=== PATIENT | female | born 1995 | race Caucasian/White ===

== ENCOUNTER 2016-06-13 15:43 | Emergency (ER) | payer OTHER ==
[~2016-06-13] VITALS: Ht 152.4 cm; Wt 77.0 kg
[2016-06-13 15:56] VITALS: Ht 152.4 cm; Wt 77.0 kg
[2016-06-13] MEDS ORDERED: METOCLOPRAMIDE 10 MG INJ IV STA (16:17)
[2016-06-13] MEDS ORDERED: DIPHENHYDRAMINE 50 MG INJ IV STA (16:17)
[2016-06-13] MEDS ORDERED: HYDROmorphONE 1 MG/ML SYG IV STA (16:17)
--- NOTE | 2016-06-13 17:28 | RADRPT ---
PROCEDURE: XR Chest. CLINICAL INDICATION: Left arm numbness, positive PPD TECHNIQUE: AP view of the chest was obtained. COMPARISON: None. FINDINGS: The cardiomediastinal silhouette is within normal limits. The lungs are clear. No pleural effusion or pneumothorax is identified. The visualized osseous structures are intact. IMPRESSION: No evidence of active cardiopulmonary disease. RPTAT: VV .Joss Brown MD, Date Time Electronically viewed and signed by .Joss Brown MD, on 06/13/2016 17:28 .O/
--- NOTE | 2016-06-13 17:39 | RADRPT ---
PROCEDURE: CT Brain without. CLINICAL INDICATION: Headache. TECHNIQUE: A CT of the brain was performed on multidetector high-resolution CT scanner utilizing a xial sections from the skull base through the vertex without contrast. The scan was reviewed in sof t tissue brain and high frequency resolution bone algorithm windows. Images were reviewed on a high -resolution PACS workstation. One or more the following does reduction techniques were utilized: Aut omated exposure control, adjustment of the mA/ or kV according to patient's size, or use of iterativ e reconstruction technique. The exam CTDI = 43.27 mGy and the DLP = 720.23 mGy-cm. COMPARISON: None available. FINDINGS: The ventricles and sulci are age-appropriate. There is no intracranial hemorrhage, mass effect or mi dline shift. No abnormal intra-axial or extra-axial fluid collections are seen. The vergara/white wallace er differentiation is preserved. No acute skull abnormality is noted. The visualized paranasal sinus es are essentially clear. IMPRESSION: 1. No acute intracranial hemorrhage, transcortical infarction or mass effect. RPTAT: EE .Vida Aparicio MD, MD Date Time Electronically viewed and signed by .Vida Aparicio MD, MD on 06/13/2016 17:39 .N/
[2016-06-13 18:36] VITALS: BP 129/79; PULSE 73; RESP 18
[2016-06-13] MEDS ORDERED: HYDR-906 PO (18:38)
[2016-06-13] MEDS ORDERED: IBUP800T25 PO (18:38)
--- NOTE | 2016-06-13 18:43 | ERD ---
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 She then states that her left upper extremity felt a little tingly but not weak. No change in speech no symptoms in the leg. She does not have a migraine history and has never had these symptoms before. No recent illness no fever or neck pain shortness of breath photophobia no phonophobia but her headache gets severely worse when she stands up or bends over. The patient had a PPD placed 5 days ago, and this is her second 1 in the past 10 days because the nurse read as positive. The patient had a chest x-ray yesterday but does not have the results. She has no TB symptoms. ROS All systems reviewed and are negative except as per history of present illness. Medications Home Meds Active Scripts Hydrocodone/Acetaminophen ([place] 5-325 Tablet) 1 Each Tablet, 1 TAB PO Q6H Y for PAIN, #20 TAB Prov:LEKKOS,APOSTOLOS A. DO 06/13/16 Ibuprofen* (Motrin*) 800 Mg Tab, 800 MG PO Q6H Y for PAIN AND OR ELEVATED TEMP, #30 TAB Prov:LEKKOS,APOSTOLOS A. DO 06/13/16 Allergies Allergies: Coded Allergies: No Known Allergy (Unverified , 06/13/16) PMhx/Soc Medical and Surgical Hx: pt denies Medical Hx, pt denies Surgical Hx Hx Alcohol Use: No Hx Substance Use: No Hx Tobacco Use: No Smoking Status: Never smoker FmHx Family History: No coronary disease Physical Exam Vitals Vital Signs Date Time Temp Pulse Resp B/P Pulse Ox O2 Delivery O2 Flow Rate FiO2 06/13/16 18:36 73 18 129/79 98 Room Air 06/13/16 15:56 98.1 87 18 130/74 98 Physical Exam Const: Well-developed, well-nourished Head: Atraumatic, normocephalic Eyes: Normal Conjunctiva, PERRLA, EOMI, normal sclera, no nystagmus ENT: Normal External Ears, Nose and Mouth, moist mucus membranes. Neck: Full range of motion. No meningismus, no lymphadenopathy. Resp: Clear to auscultation bilaterally, no wheezing, rhonchi, rales Cardio: Regular rate and rhythm, no murmurs, S1 S2 present Abd: Soft, non tender x 4, non distended. Normal bowel sounds, no guarding or rebound, no pulsitile abdominal masses or bruits Skin: No petechiae or rashes, no ecchymosis , no maculopapular rash, right forearm has a red irregular bordered site of erythema over the PPD was placed it is not raise Back: No midline or flank tenderness Ext: No cyanosis, or edema, FROM x 4, normal inspection, neurovascularly intact x 4, slight subjective tingling in her left arm Neur: Awake and alert, STR 5/5 x 4, sensation intact x 4, no focal findings, cerebellum intact Psych: Normal Mood and Affect Results 24 hrs Current Medications Medications (Trade) Dose Ordered Sig/Steve Route PRN Reason Start Time Stop Time Status Last Admin Dose Admin Metoclopramide HCl (Reglan) 10 mg ONCE STAT IV 06/13/16 16:17 06/13/16 16:19 DC 06/13/16 16:47 Hydromorphone HCl (Dilaudid) 1 mg ONCE STAT IV 06/13/16 16:17 06/13/16 16:19 DC 06/13/16 16:48 Diphenhydramine HCl (Benadryl) 25 mg ONCE STAT IV 06/13/16 16:17 06/13/16 16:19 DC 06/13/16 16:47 Procedures/MDM PROCEDURE: CT Brain without. CLINICAL INDICATION: Headache. TECHNIQUE: A CT of the brain was performed on multidetector high-resolution CT scanner utilizing axial sections from the skull base through the vertex without contrast. The scan was reviewed in soft tissue brain and high frequency resolution bone algorithm windows. Images were reviewed on a high- resolution PACS workstation. One or more the following does reduction techniques were utilized: Automated exposure control, adjustment of the mA/ or kV according to patient's size, or use of iterative reconstruction technique. The exam CTDI = 43.27 mGy and the DLP = 720.23 mGy-cm. COMPARISON: None available. FINDINGS: The ventricles and sulci are age-appropriate. There is no intracranial hemorrhage, mass effect or midline shift. No abnormal intra-axial or extra- axial fluid collections are seen. The vergara/white matter differentiation is preserved. No acute skull abnormality is noted. The visualized paranasal sinuses are essentially clear. IMPRESSION: 1. No acute intracranial hemorrhage, transcortical infarction or mass effect. RPTAT: EE .Vida Aparicio MD, MD Date Time Electronically viewed and signed by .Vida Aparicio MD, MD on 06/13/2016 17: 39 .N/ CC: LEVAR MOSES DO PROCEDURE: XR Chest. CLINICAL INDICATION: Left arm numbness, positive PPD TECHNIQUE: AP view of the chest was obtained. COMPARISON: None. FINDINGS: The cardiomediastinal silhouette is within normal limits. The lungs are clear. No pleural effusion or pneumothorax is identified. The visualized osseous structures are intact. IMPRESSION: No evidence of active cardiopulmonary disease. RPTAT: VV .Joss Brown MD, MD Date Time Electronically viewed and signed by .Joss Brown MD, on 06/13/2016 17:28 .O/ CC: LEVAR MOSES DO Patient symptoms are consistent with a complex migraine with aura. She has no pain now after medications were given she says her visual field is clear in her left arm feels normal. Patient's chest x-ray is negative despite a possibly positive PPD. Departure Diagnosis: Primary Impression: Migraine headache Migraine type: with aura Status migrainosus presence: without status migrainosus Intractability: not intractable Qualified Code: G43.109 - Migraine with aura and without status migrainosus, not intractable Condition: Stable Patient Instructions: Headache, Migraine (Classical) LEVAR MOSES DO June 13, 2016 18:43
== END 2016-06-13 18:47 | disposition home or self-care (01) ==
LOC: E/R 15:43
DX: G43.109 Migraine with aura, not intractable, without status migrainosus (principal); R76.11 Nonspecific reaction to tuberculin skin test without active tuberculosis
CPT/HCPCS: 70450; 71010; 96374; 96375; J1170; J1200; J2765; Z7502